=== PATIENT | male | born 1955 | race African-American/Black ===

== ENCOUNTER → 2022-06-14 | Outpatient (CLI) | payer MEDICARE, OTHER ==
[~2022-06-14] VITALS: Ht 185.4 cm; Wt 105.7 kg
[~2022-06-14] MED LIST: ADENOSINE 85 MG in GIVE UN-DILUTED 0 ML IV ONE; ADENOSINE 90 MG/30 ML INJ IV ONE
== END | disposition home or self-care (01) ==
LOC: Rad HDHVI 08:44
PROVIDERS: ATTEND Internal Medicine Cardiovascular Disease
DX: R07.9 Chest pain, unspecified (principal); Z82.49 Family history of ischemic heart disease and other diseases of the circulatory system; Z79.899 Other long term (current) drug therapy
CPT/HCPCS: 78452; 93005; 96374; 96375; A9500; J0153

== ENCOUNTER → 2022-06-17 | Outpatient (CLI) | payer MEDICARE, OTHER | END | disposition home or self-care (01) | LOC: Rad HDHVI 11:00 | PROVIDERS: ATTEND Internal Medicine Cardiovascular Disease | DX: I10 Essential (primary) hypertension (principal); R06.02 Shortness of breath | CPT/HCPCS: 93306 ==

== ENCOUNTER → 2022-07-19 | Outpatient (CLI) | payer MEDICARE, OTHER ==
[~2022-07-19] MED LIST changes: -ADENOSINE 85 MG in GIVE UN-DILUTED 0 ML IV ONE; -ADENOSINE 90 MG/30 ML INJ IV ONE; +CLOP75TA28 PO; +DICL1GEL72 EX; +NAP500T PO; +OXY5T PO; +PREG75CA PO; +TAMS0.4C36 PO
[2022-07-19 08:09] VITALS: BP 131/63
[2022-07-19 08:22] VITALS: BP 120/56
[2022-07-19 15:40] LABS: Basophils # (auto) 0 10 ^3/uL (0-0.2); Basophils % (auto) 0.9 % (0.0-2.0); Eosinophils # (auto) 0.1 10 ^3/uL (0-0.8); Eosinophils % (auto) 2.9 % (0.0-7.0); Hematocrit 40.3 % (41.0-53.0); Hemoglobin 13.4 g/dL (13.5-17.5); Lymphocytes % (auto) 24.4 % (10.0-50.0); Mean Corpuscular Hemoglobin 30.1 pg (28.0-32.0); Mean Corpuscular Hgb Conc. 33.2 g/dL (32.0-36.0); Mean Corpuscular Volume 90.8 fL (80.0-100.0); Monocytes # (auto) 0.7 10 ^3/uL (0-1.3); Monocytes % (auto) 16.7 % (0.0-12.0); Neutrophils # (auto) 2.3 10 ^3/uL (1.6-8.6); Neutrophils % (auto) 55.1 % (37.0-80.0); Nucleated Red Blood Cells % 0.1 %; Red Blood Cells 4.44 10^6/uL (4.5-5.90); Red Cell Distribution Width 14.7 % (11.8-14.3); White Blood Cell 4.3 10^3/uL (4.4-10.8)
[2022-07-19 15:48] LABS: BUN/Creatinine Ratio 12.4; Calcium 9.2 mg/dL (8.5-10.1); Potassium 3.6 mmol/L (3.5-5.1)
[2022-07-19 16:02] LABS: INR 1.06 (0.9-1.15); Partial Thromboplastin Time 30.5 sec (24.6-33.4)
== END | disposition home or self-care (01) ==
LOC: Rad HDHVI 08:12
PROVIDERS: ATTEND Internal Medicine Cardiovascular Disease
DX: R07.89 Other chest pain (principal)
CPT/HCPCS: 36415; 71046; 80048; 85025; 85610; 85730; 93005; G0463

== ENCOUNTER 2022-07-21 06:55 | Inpatient (IN) | payer MEDICARE, OTHER ==
[2022-07-21] VITALS (14 sets, daily range): BP systolic 130–160; BP diastolic 56–109
[~2022-07-21] VITALS: Ht 185.4 cm; Wt 101.0 kg
[2022-07-21] MEDS ORDERED: IOHEXOL 350 MG/ML 100ML IJ ONE ×2 (08:12→09:44)
[2022-07-21] MEDS ORDERED: fentaNYL CITRATE 100 MCG/2 ML VL ONE (08:37)
[2022-07-21] MEDS ORDERED: ANGIOMAX 250 MG VIAL IV ONE (08:37)
[2022-07-21] MEDS ORDERED: SODIUM CHL 0.9% 0 ML ONE (08:38)
[2022-07-21] MEDS ORDERED: MIDAZOLAM HCL 2MG/2ML 2ml VIAL (1mg/ml) ONE (08:38)
[2022-07-21] MEDS ORDERED: LIDOCAINE 2%HCL (LOCAL ANESTH.) INJ 10ml MDV ONE (08:38)
[2022-07-21] MEDS ORDERED: HEPARIN DRIP/D5W 100UNITS/ML 250 ML IV SCH (10:15)
[2022-07-21] MEDS ORDERED: MORPHINE SULFATE INJ 2 MG/ml SYRG IV PRN (10:15)
[2022-07-21] MEDS ORDERED: SODIUM CHLORIDE 0.9% 1,000 ML IV ONE (10:15)
[2022-07-21] MEDS ORDERED: NITROGLYCERIN 0.4 MG SL TAB SL PRN (10:15)
[2022-07-21] MEDS ORDERED: HEPARIN DRIP/D5W 100UNITS/ML 250 ML IV ONE (10:50)
[2022-07-21 17:14] LABS: Basophils # (auto) 0 10 ^3/uL (0-0.2); Basophils % (auto) 0.4 % (0.0-2.0); Eosinophils # (auto) 0 10 ^3/uL (0-0.8); Eosinophils % (auto) 1.1 % (0.0-7.0); Hematocrit 39.8 % (41.0-53.0); Hemoglobin 13.1 g/dL (13.5-17.5); Lymphocytes # (auto) 0.8 10 ^3/uL (0.4-5.4); Lymphocytes % (auto) 18.4 % (10.0-50.0); Mean Corpuscular Hemoglobin 29.6 pg (28.0-32.0); Mean Corpuscular Hgb Conc. 32.8 g/dL (32.0-36.0); Mean Corpuscular Volume 90.2 fL (80.0-100.0); Monocytes # (auto) 0.5 10 ^3/uL (0-1.3); Monocytes % (auto) 10.9 % (0.0-12.0); Neutrophils # (auto) 3.1 10 ^3/uL (1.6-8.6); Neutrophils % (auto) 69.2 % (37.0-80.0); Nucleated Red Blood Cells % 0.2 %; Red Blood Cells 4.42 10^6/uL (4.5-5.90); Red Cell Distribution Width 14.6 % (11.8-14.3); White Blood Cell 4.4 10^3/uL (4.4-10.8)
[2022-07-21] MEDS: TAMSULOSIN HYDROCHLORIDE 0.4 MG CAP PO SCH (19:15)
[2022-07-21] MEDS: HEPARIN DRIP/D5W 100UNITS/ML 250 ML IV SCH (19:17)
[2022-07-21] MEDS: BENAZEPRIL HCL 10 MG TAB PO SCH (22:37)
[2022-07-21] MEDS: ATORVASTATIN 20 MG TAB PO SCH (22:37)
[2022-07-21 23:27] LABS: INR 1.09 (0.9-1.15); Partial Thromboplastin Time 52.4 sec (24.6-33.4)
[2022-07-22 05:17] VITALS: BP 122/70
[2022-07-22] MEDS: HEPARIN DRIP/D5W 100UNITS/ML 250 ML IV SCH (05:51)
[2022-07-22 07:41] LABS: Basophils # (auto) 0 10 ^3/uL (0-0.2); Eosinophils % (auto) 1.2 % (0.0-7.0); Monocytes # (auto) 0.6 10 ^3/uL (0-1.3)
[2022-07-22 07:46] LABS: Basophils % (auto) 0.4 % (0.0-2.0); Eosinophils # (auto) 0 10 ^3/uL (0-0.8); Hematocrit 37.9 % (41.0-53.0); Hemoglobin 12.5 g/dL (13.5-17.5); Lymphocytes # (auto) 0.8 10 ^3/uL (0.4-5.4); Mean Corpuscular Hemoglobin 29.7 pg (28.0-32.0); Mean Corpuscular Volume 90.1 fL (80.0-100.0); Monocytes % (auto) 14.2 % (0.0-12.0); Neutrophils # (auto) 2.7 10 ^3/uL (1.6-8.6); Neutrophils % (auto) 64.2 % (37.0-80.0); Nucleated Red Blood Cells % 0.2 %; Red Blood Cells 4.21 10^6/uL (4.5-5.90); Red Cell Distribution Width 14.2 % (11.8-14.3); White Blood Cell 4.2 10^3/uL (4.4-10.8)
[2022-07-22 09:00] VITALS: BP 136/74
[2022-07-22] MEDS: PREGABALIN CAPSULE 75 MG CAP PO SCH (09:50)
[2022-07-22] MEDS: BENAZEPRIL HCL 10 MG TAB PO SCH ×2 (09:52→22:13)
[2022-07-22 13:00] VITALS: BP 134/74
[2022-07-22 16:53] VITALS: BP 152/75
[2022-07-22] MEDS: TAMSULOSIN HYDROCHLORIDE 0.4 MG CAP PO SCH (18:11)
[2022-07-22 20:00] VITALS: BP 145/85
[2022-07-22] MEDS: ATORVASTATIN 20 MG TAB PO SCH (22:12)
[2022-07-22 22:25] VITALS: BP 145/83
[2022-07-23] MEDS: HEPARIN DRIP/D5W 100UNITS/ML 250 ML IV SCH ×3 (00:44→23:07)
[2022-07-23 04:58] VITALS: BP 123/67
[2022-07-23 06:35] LABS: Basophils # (auto) 0 10 ^3/uL (0-0.2); Basophils % (auto) 0.5 % (0.0-2.0); Eosinophils # (auto) 0.1 10 ^3/uL (0-0.8); Eosinophils % (auto) 1.2 % (0.0-7.0); Hematocrit 39.7 % (41.0-53.0); Hemoglobin 13.1 g/dL (13.5-17.5); Lymphocytes # (auto) 1.2 10 ^3/uL (0.4-5.4); Lymphocytes % (auto) 23.4 % (10.0-50.0); Mean Corpuscular Hemoglobin 29.7 pg (28.0-32.0); Monocytes # (auto) 0.7 10 ^3/uL (0-1.3); Monocytes % (auto) 14.9 % (0.0-12.0); Neutrophils # (auto) 2.9 10 ^3/uL (1.6-8.6); Nucleated Red Blood Cells % 0.2 %; Red Blood Cells 4.41 10^6/uL (4.5-5.90); Red Cell Distribution Width 14.6 % (11.8-14.3); White Blood Cell 4.9 10^3/uL (4.4-10.8)
[2022-07-23 08:50] VITALS: BP 128/65
[2022-07-23] MEDS: PREGABALIN CAPSULE 75 MG CAP PO SCH (09:33)
[2022-07-23] MEDS: BENAZEPRIL HCL 10 MG TAB PO SCH ×2 (09:33→22:18)
[2022-07-23 10:13] LABS: INR 1.13 (0.9-1.15)
[2022-07-23 10:23] LABS: Partial Thromboplastin Time 80.3 sec (24.6-33.4)
[2022-07-23 13:00] VITALS: BP 141/83
[2022-07-23 16:35] VITALS: BP 139/72
[2022-07-23] MEDS: TAMSULOSIN HYDROCHLORIDE 0.4 MG CAP PO SCH (17:21)
[2022-07-23 18:18] LABS: INR 1.06 (0.9-1.15); Partial Thromboplastin Time 52.1 sec (24.6-33.4)
[2022-07-23 20:00] VITALS: BP 138/89
[2022-07-23 22:00] VITALS: BP 138/89
[2022-07-23] MEDS: ATORVASTATIN 20 MG TAB PO SCH (22:18)
[2022-07-23 23:10] LABS: INR 1.07 (0.9-1.15); Partial Thromboplastin Time 50.1 sec (24.6-33.4)
[2022-07-24 05:00] VITALS: BP 114/69
[2022-07-24 06:13] LABS: Basophils # (auto) 0 10 ^3/uL (0-0.2); Basophils % (auto) 0.3 % (0.0-2.0); Eosinophils # (auto) 0 10 ^3/uL (0-0.8); Eosinophils % (auto) 0.8 % (0.0-7.0); Hematocrit 40.4 % (41.0-53.0); Hemoglobin 13.4 g/dL (13.5-17.5); Lymphocytes # (auto) 1.2 10 ^3/uL (0.4-5.4); Lymphocytes % (auto) 24.8 % (10.0-50.0); Mean Corpuscular Hemoglobin 29.7 pg (28.0-32.0); Mean Corpuscular Hgb Conc. 33.2 g/dL (32.0-36.0); Mean Corpuscular Volume 89.3 fL (80.0-100.0); Monocytes # (auto) 0.7 10 ^3/uL (0-1.3); Monocytes % (auto) 14.5 % (0.0-12.0); Neutrophils # (auto) 2.8 10 ^3/uL (1.6-8.6); Neutrophils % (auto) 59.6 % (37.0-80.0); Nucleated Red Blood Cells % 0.4 %; Red Blood Cells 4.52 10^6/uL (4.5-5.90); Red Cell Distribution Width 14.2 % (11.8-14.3); White Blood Cell 4.7 10^3/uL (4.4-10.8)
[2022-07-24 06:26] LABS: INR 1.09 (0.9-1.15)
[2022-07-24 09:12] VITALS: BP 120/71
[2022-07-24] MEDS: PREGABALIN CAPSULE 75 MG CAP PO SCH (10:08)
[2022-07-24] MEDS: BENAZEPRIL HCL 10 MG TAB PO SCH ×2 (10:08→21:10)
[2022-07-24 12:15] LABS: INR 1.09 (0.9-1.15)
[2022-07-24 12:43] VITALS: BP 138/78
[2022-07-24 16:48] VITALS: BP 133/79
[2022-07-24] MEDS: TAMSULOSIN HYDROCHLORIDE 0.4 MG CAP PO SCH (17:26)
[2022-07-24 19:06] LABS: INR 1.1 (0.9-1.15); Partial Thromboplastin Time 48.7 sec (24.6-33.4)
[2022-07-24] MEDS: HEPARIN DRIP/D5W 100UNITS/ML 250 ML IV SCH ×2 (19:30→23:12)
[2022-07-24 20:00] VITALS: BP 138/80
[2022-07-24] MEDS: HYDROcodone-ACET 10/325MG TAB PO PRN (21:08)
[2022-07-24] MEDS: ATORVASTATIN 20 MG TAB PO SCH (21:09)
[2022-07-24 22:08] VITALS: BP 138/80
[2022-07-25 02:01] LABS: INR 1.12 (0.9-1.15); Partial Thromboplastin Time 65.9 sec (24.6-33.4)
[2022-07-25 05:00] VITALS: BP 116/70
[2022-07-25 08:09] LABS: INR 1.13 (0.9-1.15)
[2022-07-25 08:46] LABS: Partial Thromboplastin Time 73.7 sec (24.6-33.4)
[2022-07-25 08:55] VITALS: BP 125/77
[2022-07-25] MEDS: PREGABALIN CAPSULE 75 MG CAP PO SCH (09:25)
[2022-07-25] MEDS: BENAZEPRIL HCL 10 MG TAB PO SCH ×2 (09:25→21:44)
[2022-07-25 12:39] VITALS: BP 113/71
[2022-07-25 13:42] LABS: Basophils # (auto) 0 10 ^3/uL (0-0.2); Basophils % (auto) 0.4 % (0.0-2.0); Eosinophils # (auto) 0 10 ^3/uL (0-0.8); Eosinophils % (auto) 0.9 % (0.0-7.0); Hematocrit 40.9 % (41.0-53.0); Hemoglobin 13.2 g/dL (13.5-17.5); Lymphocytes # (auto) 1.1 10 ^3/uL (0.4-5.4); Lymphocytes % (auto) 20.9 % (10.0-50.0); Mean Corpuscular Hgb Conc. 32.3 g/dL (32.0-36.0); Mean Corpuscular Volume 89.8 fL (80.0-100.0); Monocytes # (auto) 0.7 10 ^3/uL (0-1.3); Monocytes % (auto) 13.6 % (0.0-12.0); Neutrophils # (auto) 3.2 10 ^3/uL (1.6-8.6); Neutrophils % (auto) 64.2 % (37.0-80.0); Nucleated Red Blood Cells % 0.2 %; Red Blood Cells 4.55 10^6/uL (4.5-5.90); Red Cell Distribution Width 14.4 % (11.8-14.3)
[2022-07-25 14:34] LABS: INR 1.11 (0.9-1.15)
[2022-07-25 14:37] LABS: Partial Thromboplastin Time 73.2 sec (24.6-33.4)
[2022-07-25 17:18] VITALS: BP 128/72
[2022-07-25] MEDS: TAMSULOSIN HYDROCHLORIDE 0.4 MG CAP PO SCH (18:22)
[2022-07-25 20:00] VITALS: BP 133/82
[2022-07-25] MEDS: HEPARIN DRIP/D5W 100UNITS/ML 250 ML IV SCH (20:12)
[2022-07-25 20:35] LABS: INR 1.13 (0.9-1.15); Partial Thromboplastin Time 66.9 sec (24.6-33.4)
[2022-07-25] MEDS: HYDROcodone-ACET 10/325MG TAB PO PRN (21:44)
[2022-07-25] MEDS: ATORVASTATIN 20 MG TAB PO SCH (21:45)
[2022-07-25 22:00] VITALS: BP 133/82
[2022-07-26 05:00] VITALS: BP 108/78
[2022-07-26 06:43] LABS: Basophils # (auto) 0 10 ^3/uL (0-0.2); Basophils % (auto) 0.5 % (0.0-2.0); Eosinophils # (auto) 0.1 10 ^3/uL (0-0.8); Eosinophils % (auto) 1.5 % (0.0-7.0); Hematocrit 41.5 % (41.0-53.0); Hemoglobin 13.4 g/dL (13.5-17.5); Lymphocytes # (auto) 1.5 10 ^3/uL (0.4-5.4); Lymphocytes % (auto) 28.4 % (10.0-50.0); Mean Corpuscular Hemoglobin 28.9 pg (28.0-32.0); Mean Corpuscular Hgb Conc. 32.2 g/dL (32.0-36.0); Mean Corpuscular Volume 89.8 fL (80.0-100.0); Monocytes # (auto) 0.7 10 ^3/uL (0-1.3); Monocytes % (auto) 14.4 % (0.0-12.0); Neutrophils # (auto) 2.9 10 ^3/uL (1.6-8.6); Neutrophils % (auto) 55.2 % (37.0-80.0); Nucleated Red Blood Cells % 0.1 %; Red Blood Cells 4.62 10^6/uL (4.5-5.90); Red Cell Distribution Width 14.5 % (11.8-14.3); White Blood Cell 5.2 10^3/uL (4.4-10.8)
[2022-07-26 08:42] VITALS: BP 111/65
[2022-07-26] MEDS: PREGABALIN CAPSULE 75 MG CAP PO SCH (10:40)
[2022-07-26] MEDS: BENAZEPRIL HCL 10 MG TAB PO SCH ×2 (10:40→22:19)
[2022-07-26 12:46] VITALS: BP 112/65
[2022-07-26 17:35] VITALS: BP 123/76
[2022-07-26] MEDS: TAMSULOSIN HYDROCHLORIDE 0.4 MG CAP PO SCH (18:01)
[2022-07-26] MEDS: HYDROcodone-ACET 10/325MG TAB PO PRN (18:35)
[2022-07-26] MEDS: HEPARIN DRIP/D5W 100UNITS/ML 250 ML IV SCH (18:35)
[2022-07-26] MEDS: ATORVASTATIN 20 MG TAB PO SCH (21:35)
[2022-07-26 23:47] VITALS: BP 108/61
[2022-07-27 01:56] LABS: INR 1.1 (0.9-1.15)
[2022-07-27 01:57] LABS: Partial Thromboplastin Time 72.6 sec (24.6-33.4)
[2022-07-27 05:29] VITALS: BP 110/67
[2022-07-27 08:30] VITALS: BP 100/55
[2022-07-27 09:07] LABS: INR 1.13 (0.9-1.15); Partial Thromboplastin Time 64.9 sec (24.6-33.4)
[2022-07-27] MEDS: PREGABALIN CAPSULE 75 MG CAP PO SCH (09:14)
[2022-07-27] MEDS: HYDROcodone-ACET 10/325MG TAB PO PRN (09:59)
[2022-07-27] MEDS: BENAZEPRIL HCL 10 MG TAB PO SCH ×2 (10:00→21:59)
[2022-07-27 12:35] VITALS: BP 102/66
[2022-07-27] MEDS: HEPARIN DRIP/D5W 100UNITS/ML 250 ML IV SCH (13:05)
[2022-07-27 16:20] VITALS: BP 100/57
[2022-07-27] MEDS: TAMSULOSIN HYDROCHLORIDE 0.4 MG CAP PO SCH (17:36)
[2022-07-27] MEDS: ATORVASTATIN 20 MG TAB PO SCH (21:59)
[2022-07-27 22:00] VITALS: BP 120/74
[2022-07-28 05:10] VITALS: BP 105/53
[2022-07-28 05:36] LABS: INR 1.1 (0.9-1.15)
[2022-07-28 05:41] LABS: Partial Thromboplastin Time 118.4 sec (24.6-33.4)
[2022-07-28 08:30] VITALS: BP 106/70
[2022-07-28] MEDS ORDERED: HEPARIN DRIP/D5W 100UNITS/ML 250 ML IV SCH ×3 (08:30→19:45)
[2022-07-28] MEDS: BENAZEPRIL HCL 10 MG TAB PO SCH ×2 (09:11→22:51)
[2022-07-28] MEDS: PREGABALIN CAPSULE 75 MG CAP PO SCH (09:19)
[2022-07-28 12:20] VITALS: BP 126/76
[2022-07-28 12:24] LABS: INR 1.1 (0.9-1.15); Partial Thromboplastin Time 44.1 sec (24.6-33.4)
[2022-07-28] MEDS: HYDROcodone-ACET 10/325MG TAB PO PRN ×2 (12:40→22:52)
[2022-07-28 13:40] LABS: Alanine Aminotransferase 22 U/L (16-61); Albumin 3.1 g/dL (3.4-5.0); Anion Gap 8 (5-15); Aspartate Aminotransferase 35 U/L (15-37); Blood Urea Nitrogen 10 mg/dL (7-18); Calcium 8.9 mg/dL (8.5-10.1); Carbon Dioxide 25 mmol/L (21-32); Chloride 109 mmol/L (98-107); GFR African American 129 mL/min; GFR Non-African American 106 mL/min; Glucose 86 mg/dL (74-106); Sodium 142 mmol/L (136-145)
[2022-07-28 13:43] LABS: Alkaline Phosphatase 98 U/L (45-117); Bilirubin, Total 0.7 mg/dL (0.2-1.0); Total Protein 6.8 g/dL (6.4-8.2)
[2022-07-28 15:32] LABS: Basophils # (auto) 0 10 ^3/uL (0-0.2); Basophils % (auto) 0.4 % (0.0-2.0); Eosinophils # (auto) 0 10 ^3/uL (0-0.8); Mean Corpuscular Hemoglobin 29.8 pg (28.0-32.0); Monocytes # (auto) 0.9 10 ^3/uL (0-1.3); Monocytes % (auto) 16.4 % (0.0-12.0); Nucleated Red Blood Cells % 0.2 %; White Blood Cell 5.5 10^3/uL (4.4-10.8)
[2022-07-28 15:35] LABS: Eosinophils % (auto) 0.6 % (0.0-7.0); Hematocrit 38.8 % (41.0-53.0); Hemoglobin 12.9 g/dL (13.5-17.5); Lymphocytes % (auto) 18.5 % (10.0-50.0); Mean Corpuscular Hgb Conc. 33.2 g/dL (32.0-36.0); Mean Corpuscular Volume 89.9 fL (80.0-100.0); Neutrophils # (auto) 3.5 10 ^3/uL (1.6-8.6); Neutrophils % (auto) 64.1 % (37.0-80.0); Red Blood Cells 4.32 10^6/uL (4.5-5.90); Red Cell Distribution Width 14.7 % (11.8-14.3)
[2022-07-28 16:25] VITALS: BP 103/71
[2022-07-28] MEDS: TAMSULOSIN HYDROCHLORIDE 0.4 MG CAP PO SCH (17:22)
[2022-07-28 19:09] LABS: INR 1.1 (0.9-1.15); Partial Thromboplastin Time 38.1 sec (24.6-33.4)
[2022-07-28 22:00] VITALS: BP 118/70
[2022-07-28] MEDS: ATORVASTATIN 20 MG TAB PO SCH (22:51)
[2022-07-29 02:13] LABS: INR 1.1 (0.9-1.15)
[2022-07-29 02:15] LABS: Partial Thromboplastin Time 84.1 sec (24.6-33.4)
[2022-07-29] MEDS: HEPARIN DRIP/D5W 100UNITS/ML 250 ML IV SCH ×3 (02:49→16:39)
[2022-07-29 05:00] VITALS: BP 104/60
[2022-07-29 08:00] VITALS: BP 112/68
[2022-07-29 09:16] LABS: INR 1.11 (0.9-1.15); Partial Thromboplastin Time 62.2 sec (24.6-33.4)
[2022-07-29] MEDS: PREGABALIN CAPSULE 75 MG CAP PO SCH (10:09)
[2022-07-29] MEDS: BENAZEPRIL HCL 10 MG TAB PO SCH ×2 (10:10→21:51)
[2022-07-29 12:25] VITALS: BP 103/65
[2022-07-29 16:18] LABS: INR 1.08 (0.9-1.15); Partial Thromboplastin Time 61.6 sec (24.6-33.4)
[2022-07-29 17:00] VITALS: BP 120/66
[2022-07-29] MEDS: TAMSULOSIN HYDROCHLORIDE 0.4 MG CAP PO SCH (18:34)
[2022-07-29] MEDS: HYDROcodone-ACET 10/325MG TAB PO PRN (21:50)
[2022-07-29] MEDS: ATORVASTATIN 20 MG TAB PO SCH (21:51)
[2022-07-29 22:00] VITALS: BP 135/72
[2022-07-29 23:44] LABS: INR 1.1 (0.9-1.15); Partial Thromboplastin Time 60.5 sec (24.6-33.4)
[2022-07-30] MEDS: HEPARIN DRIP/D5W 100UNITS/ML 250 ML IV SCH ×2 (00:05→03:21)
[2022-07-30 09:00] VITALS: BP 105/64
[2022-07-30] MEDS: HYDROcodone-ACET 10/325MG TAB PO PRN (10:26)
[2022-07-30] MEDS: PREGABALIN CAPSULE 75 MG CAP PO SCH (10:26)
[2022-07-30] MEDS: BENAZEPRIL HCL 10 MG TAB PO SCH ×2 (10:27→21:58)
[2022-07-30 13:00] VITALS: BP 93/59
[2022-07-30 17:00] VITALS: BP 98/58
[2022-07-30] MEDS: TAMSULOSIN HYDROCHLORIDE 0.4 MG CAP PO SCH (18:33)
[2022-07-30] MEDS: ATORVASTATIN 20 MG TAB PO SCH (21:59)
[2022-07-30 22:00] VITALS: BP 108/54
[2022-07-30 23:45] LABS: INR 1.08 (0.9-1.15); Partial Thromboplastin Time 48.7 sec (24.6-33.4)
[2022-07-31] MEDS ORDERED: HEPARIN DRIP/D5W 100UNITS/ML 250 ML IV SCH ×2 (00:15→13:15)
[2022-07-31 05:00] VITALS: BP 105/57
[2022-07-31 06:16] LABS: INR 1.06 (0.9-1.15); Partial Thromboplastin Time 68.3 sec (24.6-33.4)
[2022-07-31 07:25] LABS: Basophils # (auto) 0 10 ^3/uL (0-0.2); Basophils % (auto) 0.3 % (0.0-2.0); Eosinophils # (auto) 0.1 10 ^3/uL (0-0.8); Eosinophils % (auto) 1.6 % (0.0-7.0); Hematocrit 38.3 % (41.0-53.0); Hemoglobin 12.6 g/dL (13.5-17.5); Lymphocytes # (auto) 1.2 10 ^3/uL (0.4-5.4); Lymphocytes % (auto) 23.7 % (10.0-50.0); Mean Corpuscular Hemoglobin 29.6 pg (28.0-32.0); Mean Corpuscular Volume 89.8 fL (80.0-100.0); Monocytes # (auto) 0.8 10 ^3/uL (0-1.3); Monocytes % (auto) 14.9 % (0.0-12.0); Neutrophils % (auto) 59.5 % (37.0-80.0); Nucleated Red Blood Cells % 0.1 %; Red Blood Cells 4.26 10^6/uL (4.5-5.90); Red Cell Distribution Width 14.3 % (11.8-14.3); White Blood Cell 5.1 10^3/uL (4.4-10.8)
[2022-07-31 09:00] VITALS: BP 121/69
[2022-07-31] MEDS: BENAZEPRIL HCL 10 MG TAB PO SCH ×2 (11:21→21:52)
[2022-07-31] MEDS: PREGABALIN CAPSULE 75 MG CAP PO SCH (11:21)
[2022-07-31 12:36] LABS: INR 1.08 (0.9-1.15)
[2022-07-31 13:00] VITALS: BP 125/74
[2022-07-31 15:53] VITALS: BP 112/65
[2022-07-31] MEDS ORDERED: ENOXAPARIN SOD 80 MG/0.8ML SYRINGE SC ONE (16:00)
[2022-07-31 17:15] VITALS: BP 110/62
[2022-07-31] MEDS: TAMSULOSIN HYDROCHLORIDE 0.4 MG CAP PO SCH (18:13)
[2022-07-31] MEDS: ATORVASTATIN 20 MG TAB PO SCH (21:51)
[2022-07-31 22:00] VITALS: BP 109/65
== END 2022-08-01 | disposition short-term general hospital (02) | DRG 287 ==
LOC: CATH 06:55 → TELE 10:20 → TELE-WESTW 13:48 → TELE-EAST 07-31 04:34
PROVIDERS: ADMIT Internal Medicine Cardiovascular Disease; ATTEND Internal Medicine Cardiovascular Disease
PROC: 4A023N7 Measurement of Cardiac Sampling and Pressure, Left Heart, Percutaneous Approach (ICD-10-PCS; principal; 2022-07-21)
PROC: B2111ZZ Fluoroscopy of Multiple Coronary Arteries using Low Osmolar Contrast (ICD-10-PCS; 2022-07-21)
PROC: B2151ZZ Fluoroscopy of Left Heart using Low Osmolar Contrast (ICD-10-PCS; 2022-07-21)
PROC: B3151ZZ Fluoroscopy of Bilateral Common Carotid Arteries using Low Osmolar Contrast (ICD-10-PCS; 2022-07-21)
PROC: B3181ZZ Fluoroscopy of Bilateral Internal Carotid Arteries using Low Osmolar Contrast (ICD-10-PCS; 2022-07-21)
PROC: B31C1ZZ Fluoroscopy of Bilateral External Carotid Arteries using Low Osmolar Contrast (ICD-10-PCS; 2022-07-21)
PROC: B41C1ZZ Fluoroscopy of Pelvic Arteries using Low Osmolar Contrast (ICD-10-PCS; 2022-07-21)
DX: I25.10 Atherosclerotic heart disease of native coronary artery without angina pectoris (principal); I50.22 Chronic systolic (congestive) heart failure; G62.9 Polyneuropathy, unspecified; N40.0 Benign prostatic hyperplasia without lower urinary tract symptoms; I25.5 Ischemic cardiomyopathy; E78.5 Hyperlipidemia, unspecified; I11.0 Hypertensive heart disease with heart failure; Z20.822 Contact with and (suspected) exposure to COVID-19; Z82.49 Family history of ischemic heart disease and other diseases of the circulatory system; Z83.3 Family history of diabetes mellitus
CPT/HCPCS: 36223; 36227; 36415; 71046; 75736; 80048; 80053; 85025; 85610; 85730; 87426; 93005; 93458; 99152; G0378; G0463; J2001; J2250